=== PATIENT | male | born 1985 | race Caucasian/White ===

== ENCOUNTER → 2019-12-31 | Outpatient (CLI) | payer OTHER ==
--- NOTE | 2020-01-01 11:04 | MRI ---
EXAM DESCRIPTION: Brain w/wo Contrast: Magnetic Resonance Imaging. CLINICAL HISTORY: 34 years Male abnormal reflexes COMPARISON: MRI scan of the lumbar and cervical spines November 13 at outside imaging facility. TECHNIQUE: Multiplanar, high-field MRI, multiple conventional sequences, without and with gadolinium IV contrast. No adverse reactions. Multiple axial diffusion sequences. FINDINGS: Normal FLAIR and T2-weighted signal in the periventricular white matter and butterfield-white matter junctions of the cerebral hemispheres. Normal contrast enhancement.. Normal signal in the bilateral basal ganglia. Normal contrast enhancement. Normal signal in the brainstem and cerebellar hemispheres. Normal contrast enhancement. Concordance of the diffusion and non-diffusion sequences with no evidence of acute or subacute infarction. Cortical sulci, ventricles, and other CSF spaces, and the subdural spaces are normally configured. No effacement or displacement. No midline shift. No extra-axial hemorrhage. Normal contrast enhancement. Normal flow signal void in the major vessels of the [place], and the venous sinuses. IACs are symmetric bilaterally. Normal signal in the bilateral mastoid air cells. No mass effect in the bilateral Cerebellopontine angles. Normal contrast enhancement. Pituitary gland occupies most of the sella. Normal contrast enhancement. Base of the cerebellar tonsils is at the level of the foramen magnum. Normal signal in the paranasal sinuses. Anterior nasal septum deviated to the right. The bony calvarium is intact. IMPRESSION: 1. Normal MRI scan of the brain without and with gadolinium IV contrast. Normal contrast enhancement. No mass effect, no shift, no cerebral edema. 2. Normal noncontrast MRI diffusion scan of the brain with no evidence of diffusion restriction or significant ischemia or acute/subacute infarction. Electronically signed by: Sylvester Saleem MD 01/01/2020 10:57 AM CDT
== END ==
LOC: MRI 12:58
PROVIDERS: ATTEND Physician Assistant
DX: R29.2 Abnormal reflex (principal)